=== PATIENT | female | born 1960 | race African-American/Black ===

== ENCOUNTER 2016-09-19 12:58 | Emergency (ER) | payer OTHER ==
[~2016-09-19] VITALS: Ht 157.5 cm; Wt 86.0 kg
[~2016-09-19 12:58] MED LIST: DILTCD240 PO; ST J81CH PO
[2016-09-19 13:05] VITALS: BP 178/100; PULSE 99; RESP 18; TEMP 98.5; O2SAT 98
[2016-09-19] MEDS ORDERED: ONDANSETRON ODT 4 MG TAB PO ONE (13:15)
[2016-09-19] MEDS ORDERED: ACETAMINOPHEN/HYDROcodone 325 MG/5 MG TAB PO ONE (13:15)
--- NOTE | 2016-09-19 13:16 | PD ---
HPI Chief Complaint: Musculoskeletal Complaint Time Seen by Provider: 13:09 Travel History International Travel<30 days: No Contact w/Intl Traveler<30days: No Traveled to known affect area: No History of Present Illness HPI 56-year-old female arrives by EMS. She was on a stepladder and fell backwards striking her head against a refrigerator. She was working at the [employer]. She complains of pain in the lower back and occipital scalp. No loss of consciousness. No weakness or paresthesia. No vomiting. Distance of fall is < 3 feet. 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 ) Psychiatric: No Reproductive: No Respiratory: No Migraines: Yes Myocardial Infarction: No Radiation Therapy: No Sleep Apnea: No Thyroid Disease: No Menopausal: Yes Past Surgical History Hysterectomy: Yes Neurologic Surgery: Yes (x2 brain surgeries fluid and blood around brain) Other Surgery: Yes (LEFT HAND WITH WIRES, RIGHT KNEE TOTAL REPLACEMENT) Social History Alcohol Use: No Tobacco Use: No Substance Use: No Allergies-Medications (Allergen,Severity, Reaction): Coded Allergies: Codeine (Verified Allergy, Severe, RASH, 09/19/16) Reported Meds & Prescriptions Reported Meds & Active Scripts Active No Active Prescriptions or Reported Medications Review of Systems Except as stated in HPI: all other systems reviewed are Neg Physical Exam Narrative GENERAL: 56 yo F, WNWD, mild distress 2/2 pain and/or anxiety SKIN: Warm and dry. HEAD: Atraumatic. Normocephalic. EYES: Pupils equal and round. No scleral icterus. No injection or drainage. ENT: No nasal bleeding or discharge. Mucous membranes pink and moist. NECK: Trachea midline. No JVD. No focal C-spine tenderness. CARDIOVASCULAR: Regular rate and rhythm. RESPIRATORY: No accessory muscle use. Clear to auscultation. Breath sounds equal bilaterally. GASTROINTESTINAL: Abdomen soft, non-tender, nondistended. Hepatic and splenic margins not palpable. MUSCULOSKELETAL: Extremities without clubbing, cyanosis, or edema. No obvious deformities. NEUROLOGICAL: Awake and alert. No obvious cranial nerve deficits. Motor grossly within normal limits. Five out of 5 muscle strength in the arms and legs. Normal speech. PSYCHIATRIC: Appropriate mood and affect; insight and judgment normal. Data Data Last Documented VS Vital Signs Date Time Temp Pulse Resp B/P Pulse Ox O2 Delivery O2 Flow Rate FiO2 09/19/16 13:05 98.5 99 18 178/100 98 Orders Acetamin-Hydrocod 325-5 Mg ([place] 5-325 (09/19/16 13:15) Ondansetron Odt (Zofran Odt) (09/19/16 13:15) [facility] Medical Decision Making Medical Screen Exam Complete: Yes Emergency Medical Condition: Yes Medical Record Reviewed: Yes Differential Diagnosis Contusion, CHI, c-spine fracture, hematoma Narrative Course According to [place] Head CT rule CT not necessary for this patient. According to NEXUS criteria neck imaging is not required. Pain control, observation. 1415 PT AMBULATORY WITH NO DIFFICULTY. PT REPORTS PAIN CONTROLLED. RETURN PRECAUTIONS DISCUSSED. Diagnosis Primary Impression: Fall Qualified Code: W19.XXXA - Fall, initial encounter Referrals: Primary Care Physician 2 days Additional Instructions: IF YOU DEVELOP CONFUSION, CONSTANT WORSENING HEADACHE, SEVERE SLEEPINESS, VOMITING PLEASE RETURN TO THE ER IMMEDIATELY. PLEASE TAKE TODAY AND TOMORROW OFF FROM WORK. PLEASE USE MOTRIN OR TYLENOL NEEDED FOR PAIN. Med/Other Pt SpecificInfo: No Change to Meds Scripts No Active Prescriptions or Reported Meds Disposition: 01 DISCHARGE HOME Condition: Stable Ismael Britton MD Sep 19, 2016 13:16
[2016-09-19 14:17] VITALS: BP 191/94
== END 2016-09-19 14:29 | disposition home or self-care (01) ==
LOC: NEPE 12:58
DX: M54.5 Low back pain (principal); R51 Headache; I10 Essential (primary) hypertension; W11.XXXA Fall on and from ladder, initial encounter; Z88.5 Allergy status to narcotic agent
CPT/HCPCS: 99283